=== PATIENT | male | born 1950 | race Caucasian/White ===

== ENCOUNTER 2023-04-21 12:33 | Outpatient (CLI) | payer MEDICARE, SELFPAY ==
--- NOTE | 2023-04-21 13:14 | W.ANESCHARGE ---
Anesthesia Charges Start Date/Time Anesthesia Start Date: 04/21/23 Anesthesia Start Time: 13:45 Stop Date/Time Anesthesia Stop Date: 04/21/23 Anesthesia Stop Time: 14:53 Summary Extremes of Age - Over 70 or under 1: MDA
--- NOTE | 2023-04-21 14:35 | W.ANESCHARGE ---
Anesthesia Charges Start Date/Time Anesthesia Start Date: 04/21/23 Anesthesia Start Time: 13:45 Stop Date/Time Anesthesia Stop Date: 04/21/23 Anesthesia Stop Time: 14:53
== END 2023-04-21 12:34 | disposition home or self-care (01) ==
LOC: OP CLINIC 12:40
PROVIDERS: Visit Provider Internal Medicine Gastroenterology
DX: Z12.11 Encounter for screening for malignant neoplasm of colon (principal); K63.5 Polyp of colon; Z86.010 Personal history of colon polyps; R10.13 Epigastric pain; R63.4 Abnormal weight loss
CPT/HCPCS: 00811; 00813; 43239; 45385; 88305; 99100; J2704